=== PATIENT | female | born 1990 | race Native Hawaiian/Other Pacific Islander ===

== ENCOUNTER 2016-12-31 15:43 | Emergency (ER) | payer OTHER ==
--- NOTE | 2016-12-31 17:03 | OBHP ---
Datetime: 12/31/2016 16:56 IP Adm Impression Other: nst reactive IP Admit Plan: Discharge home Admit Comment, IP Provider: chief complaint nst HPI 26 y/o female with hx of previous csection here for nst at 36.5 wga.Patient was seen in office and c/o back pain for last 3 days and pelvic pressure. cervix was closed as per patient.she was sent over for nst course uncomplicaed PMH deneis PSH csection OBGYN HX ' at 39 weeks due to failed induction and elevate dbp Social hx denies tobacco,alcohol or illicit drug use exam see exam section NST reactive A/P Patienta t3 6.5 wha here for nst. nst reactive patient discharged home follow up in [address] garcia discussed withkimberli garcia Pelvic Type - PN: Adequate Extremities - PN: Normal Abdomen - PN: Normal Back - PN: Normal Lungs - PN: Normal Heart - PN: Normal Neurologic - PN: Normal General - PN: Normal Presentation-Admit: Vertex Contraction Comments Provider: none Gestation - Est Wks by US: 36.5 EGA AdmitDate IP: 36.5 Vital Signs Provider: Reviewed; Within Normal Limits IP Chief Complaint: evaluation FHR Category Provider Fetus A: Category I Genitourinary Exam: Normal DTRs - PN: Normal
== END 2016-12-31 17:07 | disposition home or self-care (01) ==
LOC: C.EROB 15:43
DX: Z36 Encounter for antenatal screening of mother (principal)